=== PATIENT | male | born 1990 | race African-American/Black ===

== ENCOUNTER 2016-09-30 06:14 | Emergency (ER) | payer MEDICAID ==
[~2016-09-30] VITALS: Ht 190.5 cm; Wt 81.8 kg
[2016-09-30 07:36] VITALS: BP 127/79
== END 2016-09-30 09:35 | disposition home or self-care (01) ==
LOC: ER 06:16
DX: F41.9 Anxiety disorder, unspecified (principal); R51 Headache; F17.210 Nicotine dependence, cigarettes, uncomplicated; F12.10 Cannabis abuse, uncomplicated; F15.10 Other stimulant abuse, uncomplicated